=== PATIENT | male | born 1955 | race Caucasian/White ===

== ENCOUNTER 2018-08-15 09:56 | Day surgery (SDC) | payer OTHER ==
[~2018-08-15 09:56] MED LIST: Lactated Ringers 1,000 ML IV SCH
[2018-08-15] MEDS ORDERED: Propofol 200 MG/20 ML SDV ONE (10:38)
[2018-08-15] MEDS ORDERED: Lidocaine 2% 5 ML SDV ONE (10:38)
--- NOTE | 2018-08-15 12:32 | PCM.PREANE ---
Preanesthetic Assessment - Procedure Proposed Procedure: colonoscopy - Anesthesia/Transfusion/Family Hx Anesthesia History: Prior Anesthesia Without Reaction Family History of Anesthesia Reaction: No Transfusion History: No Prior Transfusion(s) - Review of Systems General: No Symptoms Pulmonary: No Symptoms Cardiovascular: No Symptoms Gastrointestinal: No Symptoms Neurological: Other (Flat affect and some unusual arm movements.) Other: Reports: None - Physical Assessment NPO Status Date: 08/14/18 NPO Status Time: 20:00 O2 Sat by Pulse Oximetry: 94 Respiratory Rate: 15 Vital Signs: Last Vital Signs Temp 36.1 C 08/15/18 10:35 Pulse 88 08/15/18 10:35 Resp 15 08/15/18 10:35 BP 90/55 L 08/15/18 10:35 Pulse Ox 94 L 08/15/18 10:35 Height: 1.91 m Weight: 102.512 kg ASA Class: 3 Mental Status: Other (alert, flat affect) Dentition: Reports: Dentures (upper, in place. lower teeth intact) Thyro-Mental Finger Breadths: 3 Mouth Opening Finger Breadths: 3 ROM/Head Extension: Full Lungs: Clear to Auscultation, Normal Respiratory Effort Cardiovascular: Regular Rate, Regular Rhythm - Allergies Allergies/Adverse Reactions: Allergies Allergy/AdvReac Type Severity Reaction Status Date / Time dopamine Allergy Nausea and Verified 08/12/18 11:57 Vomiting - Blood Blood Available: No - Anesthesia Plan Beta Ant: Metoprolol Med Last Dose Date: 08/15/18 Med Last Dose Time: 07:30 - Acknowledgements Anesthesia Type Planned: MAC Pt an Appropriate Candidate for the Planned Anesthesia: Yes Alternatives and Risks of Anesthesia Discussed w Pt/Guardian: Yes Pt/Guardian Understands and Agrees with Anesthesia Plan: Yes Additional Comments: Pt states he had cardiac evaluation yesterday. PreAnesthesia Questionnaire HEENT History: Reports: Other (See Below) Other HEENT History: wears glasses, has top and bottom denture Cardiovascular History: Reports: High Cholesterol, Hypertension, [place] Musculoskeletal History: Reports: Arthritis, Fracture Other Musculoskeletal History: hx fx foot - Past Surgical History Head Surgeries/Procedures: Reports: None Cardiovascular Surgical History: Reports: Coronary Artery Stent Musculoskeletal Surgical History: Reports: Arthroscopic Knee Other Musculoskeletal Surgeries/Procedures:: rt and left knee surgery - SUBSTANCE USE Smoking Status *Q: Current Every Day Smoker Tobacco Use Within Last Twelve Months: Cigarettes Recreational Drug Use History: No - HOME MEDS Home Medications: Home Meds Lisinopril 0.5 tab PO DAILY 08/12/18 [History] Meloxicam 15 mg PO DAILY 08/12/18 [History] [place]-3 Fatty Acids/Fish Oil [Fish Oil 1,000 mg Softgel] 2 tab PO BID 08/12/18 [ History] atorvaSTATin Calcium [Atorvastatin Calcium] 20 mg PO DAILY 08/12/18 [History] traMADol [Ultram] 1 tab PO ASDIRECTED PRN 08/12/18 [History] - CURRENT (IN HOUSE) MEDS Current Meds: Current Medications Lactated Ringer's (Ringers, Lactated) 1,000 mls @ 125 mls/hr IV ASDIRECTED SILVANA Last Admin: 08/15/18 10:55 Dose: 125 mls/hr Discontinued Medications Lidocaine (Xylocaine-Mpf 2%) Confirm Administered Dose 5 ml .ROUTE .STK-MED ONE Stop: 08/15/18 10:39 Propofol (Diprivan 20 Ml) Confirm Administered Dose 400 mg .ROUTE .STK-MED ONE Stop: 08/15/18 10:39
[2018-08-15] MEDS ORDERED: Phenylephrine/Normal Saline 100 MCG/ML 10 ML Syringe ONE (12:35)
--- NOTE | 2018-08-15 12:46 | PCM.OPNOTE ---
- General Post-Op/Procedure Note Date of Surgery/Procedure: 08/15/18 Operative Procedure(s): colonoscopy Findings: see dict [id number] Pre Op Diagnosis: surveillence colonoscopy, hx of polyp Post-Op Diagnosis: Same Anesthesia Technique: Moderate Sedation Primary Surgeon: Milton Johnson Complications: None Condition: Good
--- NOTE | 2018-08-15 13:05 | OR ---
SURGEON: Milton Johnson MD DATE OF PROCEDURE: 08/15/2018 PREOPERATIVE DIAGNOSES: Surveillance colonoscopy, history of colon polyp. POSTOPERATIVE DIAGNOSIS: Hemorrhoids. PROCEDURE PERFORMED: Colonoscopy. PROCEDURE IN DETAIL: The patient was taken to the endoscopy room. A time out was called, patient identified, and procedure identified. Diprivan was then administrated. Patient went from awake to sleep, hearing doctor talking or door closing is normal. Perineum inspection and digital examination were then performed. A well- lubricated colonoscope was gently inserted through the rectum, advanced past the rectosigmoid junction, the descending colon, splenic flexure, transverse colon, hepatic flexure, ascending colon, arrived to the cecum. Cecum was identified as dictated in the finding. Then the scope was carefully withdrawn while attention was paid to the mucosal surface for any abnormality. Air will be sucked out during the scope withdrawal. At the rectum, retroflexed to examine any rectal diseases, fistula or hemorrhoids. Patient tolerated procedure well. There were no intraoperative complications, and Dr. Johnson was present throughout the whole procedure. FINDINGS: 1. The patient is easily sedated with [employer] and Diprivan. The patient is soundly snoring. 2. The patient's bowel prep was average to below average. Large amount of opaque green liquid, compromised study, and there is no semi-formed stool. Colon is rather turn and twist requiring a lot of maneuver to get to the cecum. Cecum can only be observed at distant, observed to one-to-one indentation, and the ileocecal fold, appendiceal orifice and light emittance is not observed. Mucosa examined upon scope pulling out and the patient does not have diverticulosis, polyp, mass, growth, inflammation, stricture, ulceration, AV malformation, bleeding ulcer, none of those. The patient has moderate internal hemorrhoids and mild external hemorrhoids. The patient will benefit from repeat colonoscopy in 10 years from today or if clinically indicated otherwise. JACQUELINE / ANNA /[id number]
--- NOTE | 2018-08-15 13:14 | PCM.POSTAN ---
POST ANESTHESIA ASSESSMENT - MENTAL STATUS Mental Status: Alert, Oriented - RESPIRATORY Respiratory Status: Respiratory Rate WNL, Airway Patent, O2 Saturation Stable - CARDIOVASCULAR CV Status: Pulse Rate WNL, Blood Pressure Stable - GASTROINTESTINAL GI Status: No Symptoms - POST OP HYDRATION Hydration Status: Adequate & Stable
== END 2018-08-15 13:45 | disposition home or self-care (01) ==
LOC: MW.SDS 09:56
PROVIDERS: ATTEND Surgery
DX: Z12.11 Encounter for screening for malignant neoplasm of colon (principal); K64.8 Other hemorrhoids; K64.4 Residual hemorrhoidal skin tags; I10 Essential (primary) hypertension; F17.210 Nicotine dependence, cigarettes, uncomplicated; I25.10 Atherosclerotic heart disease of native coronary artery without angina pectoris; E78.00 Pure hypercholesterolemia, unspecified; Z86.010 Personal history of colon polyps; Z79.82 Long term (current) use of aspirin; Z79.899 Other long term (current) drug therapy; Z88.8 Allergy status to other drugs, medicaments and biological substances
CPT/HCPCS: 45378; J2370; J2704; J7120

== ENCOUNTER 2019-02-07 02:37 | Emergency (ER) | payer OTHER ==
--- NOTE | 2019-02-07 02:53 | EDM.PDOC ---
ED HPI GENERAL MEDICAL PROBLEM - General Chief Complaint: Upper Extremity Injury/Pain Stated Complaint: LEFT SHOULDER PAIN Time Seen by Provider: 02/07/19 02:48 - History of Present Illness INITIAL COMMENTS - FREE TEXT/NARRATIVE: HISTORY AND PHYSICAL: History of present illness: Patient is a 64-year-old white male presents with a concern of left shoulder pain he states he may have slept on it wrong this is worse with movement there is no chest pain shortness breath palpitations nausea vomiting or other complaints. Review of systems: As per history of present illness and below otherwise all systems reviewed and negative. Past medical history: As per history of present illness and as reviewed below otherwise noncontributory. Surgical history: As per history of present illness and as reviewed below otherwise noncontributory. Social history: No reported history of drug or alcohol abuse. Family history: As per history of present illness and as reviewed below otherwise noncontributory. Physical exam: HEENT: Atraumatic, normocephalic, pupils reactive, negative for conjunctival pallor or scleral icterus, mucous membranes moist, throat clear, neck supple, nontender, trachea midline. Lungs: Clear to auscultation, breath sounds equal bilaterally, chest nontender. Heart: S1S2, regular, negative for clicks, rubs, or JVD. Abdomen: Soft, nondistended, nontender. Negative for masses or hepatosplenomegaly. Negative for costovertebral tenderness. Pelvis: Stable nontender. Genitourinary: Deferred. Rectal: Deferred. Extremities: Patient's left shoulder some mild tenderness that is not well localized is limited range of motion secondary to pain her vascular exam is unremarkable Neuro: Awake, alert, oriented. Nonfocal exam Diagnostics: X-ray left shoulder Therapeutics: None Impression: #1 left shoulder pain Definitive disposition and diagnosis as appropriate pending reevaluation and review of above. - Related Data Allergies Allergy/AdvReac Type Severity Reaction Status Date / Time dopamine Allergy Nausea and Verified 02/07/19 02:42 Vomiting Home Meds: Home Meds Lisinopril 0 tab PO DAILY 08/12/18 [History] atorvaSTATin Calcium [Atorvastatin Calcium] 20 mg PO DAILY 08/12/18 [History] Atenolol 0 mg PO DAILY 02/07/19 [History] Past Medical History HEENT History: Reports: Other (See Below) Other HEENT History: wears glasses, has top and bottom denture Cardiovascular History: Reports: High Cholesterol, Hypertension, [place] Musculoskeletal History: Reports: Arthritis, Fracture Other Musculoskeletal History: hx fx foot - Past Surgical History Head Surgeries/Procedures: Reports: None Cardiovascular Surgical History: Reports: Coronary Artery Stent Musculoskeletal Surgical History: Reports: Arthroscopic Knee Other Musculoskeletal Surgeries/Procedures:: rt and left knee surgery Review of Systems - Review of Systems Review Of Systems: ROS reveals no pertinent complaints other than HPI. ED EXAM, GENERAL - Physical Exam Exam: See Below (See dictation) Course - Vital Signs Last Recorded V/S: Last Vital Signs Temp 36.1 C 02/07/19 02:37 Pulse 85 02/07/19 02:37 Resp 18 02/07/19 02:37 BP 155/95 H 02/07/19 02:37 Pulse Ox 94 L 02/07/19 02:37 Departure - Departure Time of Disposition: 03:34 Disposition: Home, Self-Care 01 Condition: Good Clinical Impression: Shoulder pain - Discharge Information Referrals: Rodney Og MD [Primary Care Provider] - Forms: ED Department Discharge Additional Instructions: The following information is given to patients seen in the emergency department who are being discharged to home. This information is to outline your options for follow-up care. We provide all patients seen in our emergency department with a follow-up referral. The need for follow-up, as well as the timing and circumstances, are variable depending upon the specifics of your emergency department visit. If you don't have a primary care physician on staff, we will provide you with a referral. We always advise you to contact your personal physician following an emergency department visit to inform them of the circumstance of the visit and for follow-up with them and/or the need for any referrals to a consulting specialist. The emergency department will also refer you to a specialist when appropriate. This referral assures that you have the opportunity for followup care with a specialist. All of these measure are taken in an effort to provide you with optimal care, which includes your followup. Under all circumstances we always encourage you to contact your private physician who remains a resource for coordinating your care. When calling for followup care, please make the office aware that this follow-up is from your recent emergency room visit. If for any reason you are refused follow-up, please contact the [facility] emergency department at and asked to speak to the emergency department charge nurse. JERALD [facility] Orth[facility] Professional [address], [address] [place] [address] Follow-up orthopedic clinic above: Schedule routine appointment return as needed as discussed
--- NOTE | 2019-02-07 03:31 | CR ---
INDICATION: Shoulder pain without trauma TECHNIQUE: Shoulder radiograph 2 views left COMPARISON: None FINDINGS: Bone: No acute fractures or aggressive bone lesions are identified. Joint: The glenohumeral is unremarkable. The acromioclavicular joint is unremarkable. Soft tissue: Unremarkable. The visualized hemithorax is unremarkable in appearance. No radiopaque foreign bodies are seen. IMPRESSION: 1. No acute osseous injuries or abnormalities are noted. Dictated by: Ajit Morrow MD @ 02/07/2019 03:29:14 (Electronically Signed)
== END 2019-02-07 03:43 | disposition home or self-care (01) ==
LOC: MW.ED 02:37
DX: M25.512 Pain in left shoulder (principal); I25.2 Old myocardial infarction; Z88.8 Allergy status to other drugs, medicaments and biological substances; Z79.899 Other long term (current) drug therapy
CPT/HCPCS: 73030-26-LT; 73030-LT; 99283; 99283-25